=== PATIENT | male | born 1980 | race Hispanic/Latino ===

== ENCOUNTER 2019-07-15 19:13 | Emergency (ER) | payer SELFPAY ==
[2019-07-15] MEDS ORDERED: LIDOCAINE 1%-EPI 1:100,000 20 ML VIAL IJ ONE (19:52)
[2019-07-15] MEDS ORDERED: TETANUS/DIPHTHERIA TOXOID [ADULT] 0.5 ML VIAL IM ONE (20:47)
== END 2019-07-15 21:18 | disposition home or self-care (01) ==
LOC: EDH 19:13
DX: S01.81XA Laceration without foreign body of other part of head, initial encounter (principal); Z72.0 Tobacco use; W22.8XXA Striking against or struck by other objects, initial encounter; Y93.89 Activity, other specified; Y92.89 Other specified places as the place of occurrence of the external cause; Y99.8 Other external cause status
CPT/HCPCS: 12013; 90471; 90714; 99283; J3490